=== PATIENT | male | born 1995 | race Caucasian/White ===

== ENCOUNTER 2023-03-23 04:45 | Emergency (ER) | payer BC ==
[2023-03-23] MEDS ORDERED: Ondansetron PF 4 MG/2 ML Vial ONE (05:07)
[2023-03-23 05:28] LABS: #Eosinphils 0.5 thou/uL (0.0-0.7); #Monocytes 0.6 thou/uL (0.11-0.59); #Neutrophils 2.9 thou/uL (1.40-6.50); %Basophils 0.5 % (0.0-1.0); %Eosinophils 5.5 % (0.0-10.0); %Lymphocytes 51.3 % (21.0-51.0); %Monocytes 7.6 % (0.0-10.0); Hematocrit 42.7 % (42.0-52.0); Hemoglobin 15.1 g/dL (14.0-18.0); Mean Corpuscular HGB CONC 35.4 g/dL (32.0-36.0); Mean Corpuscular Hemoglobin 31.1 pg (27.0-31.0); Mean Corpuscular Volume 87.9 fl (78.0-98.0); Mean Platelet Volume 9.3 fL (7.4-10.4); Platelet Count 235 10x3/uL (130-400); RBC Distribution Width 13.4 % (11.5-14.5); Red Blood Cell (RBC) Count 4.86 mill/uL (4.70-6.10); White Blood Cell (WBC) Count 8.3 10x3/uL (4.8-10.8)
[2023-03-23 05:48] LABS: Prothrombin Time 13.9 sec (12.0-14.7)
[2023-03-23 05:49] LABS: PTT 24.6 sec (22.9-36.1)
[2023-03-23 05:50] LABS: ALT (SGPT) 21 U/L (8-55); AST (SGOT) 22 U/L (5-34); Albumin 4.3 g/dL (3.5-5.0); Alkaline Phosphatase 53 U/L (40-110); Anion Gap 14 mmol/L (10-20); BUN (Urea Nitrogen) 9 mg/dL (8.9-20.6); Bilirubin, Total 0.9 mg/dL (0.2-1.2); Calc. Creatinine Clearance 0 mL/min (70-130); Calcium 9.1 mg/dL (7.8-10.44); Carbon Dioxide 22 mmol/L (22-29); Chloride 104 mmol/L (98-107); Estimated GFR 123; Globulin 2.8 g/dL (2.4-3.5); Glucose 123 mg/dL (70-105); Magnesium 1.6 mg/dL (1.6-2.6); Potassium 3.2 mmol/L (3.5-5.1); Protein, Total 7.1 g/dL (6.0-8.3); Sodium 137 mmol/L (136-145)
[2023-03-23 06:22] LABS: Acetaminophen Less than 10 mcg/mL (10.0-30.0); Alcohol Less than 10.0 mg/dL (Less than 10); Salicylate Less than 8.0 mg/dL (15.0-30.0)
[2023-03-23] MEDS ORDERED: Potassium Chloride 20 MEQ TAB ONE (06:54)
[2023-03-23 07:29] LABS: Amphetamine Not Detected (NotDetected); Barbiturates Screen Not Detected (NotDetected); Benzodiazepine Screen Not Detected (NotDetected); Cocaine Metabolite Screen Not Detected (NotDetected); Methadone Not Detected (NotDetected); Methamphetamine Not Detected (NotDetected); Opiate Screen Not Detected (NotDetected); Oxycodone Screen Not Detected (NotDetected); Phencyclidine (PCP) Not Detected (NotDetected); THC/Cannabinoid Screen Not Detected (NotDetected); Tricyclic Screen Not Detected (NotDetected)
[2023-03-23 09:09] LABS: Lactic Acid 0.7 mmol/L (0.5-2.2)
== END 2023-03-23 10:44 | disposition home or self-care (01) ==
LOC: ERS 04:45
DX: T56.1X1A Toxic effect of mercury and its compounds, accidental (unintentional), initial encounter (principal); E87.6 Hypokalemia; F17.210 Nicotine dependence, cigarettes, uncomplicated
CPT/HCPCS: 36415; 71045; 74018; 80053; 80306; 80307; 83605; 83735; 83825; 85025; 85610; 85730; 86850; 86900; 86901; 93005; 94760; J2405

== ENCOUNTER 2023-10-17 20:40 | Inpatient (IN) | payer SELFPAY ==
[2023-10-17] MEDS ORDERED: Ondansetron PF 4 MG/2 ML Vial ONE (23:26)
[2023-10-17] MEDS ORDERED: Morphine 4 MG/ML VIAL ONE (23:26)
[2023-10-18 01:49] VITALS: BMI 21.9
[2023-10-18] MEDS: Sodium Chloride 0.9% 1,000 ML IV SCH (02:13)
[2023-10-18] MEDS ORDERED: Morphine 4 MG/ML VIAL SLOW IVP PRN (02:16)
[2023-10-18] MEDS ORDERED: Calcium Carbonate 500 MG ChewTAB PO PRN ×2 (02:16→14:36)
[2023-10-18] MEDS ORDERED: Ondansetron PF 4 MG/2 ML Vial IVP PRN ×2 (02:16→14:36)
[2023-10-18] MEDS ORDERED: Promethazine HCl 25 MG/ML VIAL IM PRN ×2 (02:16→14:11)
[2023-10-18] MEDS ORDERED: Mag-Al 1200 mg/1200 mg/30 ML UDCUP PO PRN (02:16)
[2023-10-18] MEDS ORDERED: hydrALAZINE 20 MG/ML VIAL SLOW IVP PRN (02:16)
[2023-10-18] MEDS ORDERED: HYDROcodone/Acetaminophen 7.5/325 mg Tablet PO PRN (02:19)
[2023-10-18] MEDS: Lactated Ringer's 1,000 ML IV SCH (02:46)
[2023-10-18] MEDS: Piperacillin/Tazobactam 3.375 GM in Sodium Chloride 0.9% 100 ML IVPB SCH ×2 (02:54→02:55)
[2023-10-18 05:26] LABS: #Basophils 0.03 10x3/uL (0.0-0.2); %Basophils 0.3 % (0.0-1.0); %Eosinophils 0.5 % (0.0-10.0); %Lymphocytes 26.5 % (21.0-51.0); %Monocytes 14.6 % (0.0-10.0); %Neutrophils 57.8 % (42.0-75.0); Hematocrit 39.2 % (42.0-52.0); Hemoglobin 13.5 g/dL (14.0-18.0); Mean Corpuscular HGB CONC 34.4 g/dL (32.0-36.0); Mean Corpuscular Volume 89.9 fL (78.0-98.0); Mean Platelet Volume 9.1 fL (7.4-10.4); Platelet Count 226 10x3/uL (130-400); RBC Distribution Width 13.1 % (11.5-14.5); Red Blood Cell (RBC) Count 4.36 mill/uL (4.70-6.10)
[2023-10-18 05:52] LABS: ALT (SGPT) 15 U/L (8-55); AST (SGOT) 24 U/L (5-34); Albumin 3.3 g/dL (3.5-5.0); Alkaline Phosphatase 45 U/L (40-110); Anion Gap 13 mmol/L (10-20); BUN (Urea Nitrogen) 7 mg/dL (8.9-20.6); Bilirubin, Total 0.6 mg/dL (0.2-1.2); Calc. Creatinine Clearance 155 mL/min (70-130); Calcium 8.8 mg/dL (7.8-10.44); Carbon Dioxide 25 mmol/L (22-29); Chloride 104 mmol/L (98-107); Estimated GFR 123; Globulin 2.4 g/dL (2.4-3.5); Glucose 105 mg/dL (70-105); Potassium 3.4 mmol/L (3.5-5.1); Protein, Total 5.7 g/dL (6.0-8.3); Sodium 139 mmol/L (136-145)
[2023-10-18] MEDS ORDERED: Piperacillin/Tazobactam 3.375 GM in Sodium Chloride 0.9% 100 ML IVPB SCH (06:00)
[2023-10-18] MEDS: Famotidine 20 MG TAB PO SCH ×2 (09:05→20:11)
[2023-10-18] MEDS: Acetaminophen 325 MG TAB PO PRN (09:09)
[2023-10-18] MEDS ORDERED: Bupivacaine 0.25% HCL 30 ML VIAL ONE (09:30)
[2023-10-18] MEDS ORDERED: EPINEPHrine 1 MG/ML VIAL ONE (09:30)
[2023-10-18] MEDS: Indocyanine Green 25 MG/10 ML VIAL IVP SCH (11:57)
[2023-10-18] MEDS ORDERED: PROPOFOL 40 ML ONE (12:48)
[2023-10-18] MEDS ORDERED: Midazolam HCl 2 mg/2 ml Vial ONE (12:48)
[2023-10-18] MEDS ORDERED: Fentanyl 250 MCG/5 ML VIAL ONE (12:48)
[2023-10-18] MEDS ORDERED: Lidocaine 1% PF 5 ML VIAL ONE (13:22)
[2023-10-18] MEDS ORDERED: Dexamethasone 20 MG/5 ML VIAL ONE (13:22)
[2023-10-18] MEDS ORDERED: Rocuronium Bromide 10 MG/ML (10ML VIAL) ONE (13:22)
[2023-10-18] MEDS ORDERED: Dexmedetomidine 200 MCG/2 ML VIAL ONE (13:37)
[2023-10-18] MEDS ORDERED: SUGAMMADEX SODIUM 200 MG/2 ML VIAL ONE (13:55)
[2023-10-18] MEDS ORDERED: PROPOFOL 20 ML ONE (13:59)
[2023-10-18] MEDS ORDERED: HYDROmorphone 2 MG/ML VIAL SLOW IVP PRN (14:11)
[2023-10-18] MEDS ORDERED: Ondansetron HCl/PF 4 MG/2 ML Vial IVP PRN (14:11)
[2023-10-18] MEDS ORDERED: Ipratropium/Albuterol 3 ML NEB NEB PRN (14:36)
[2023-10-18] MEDS ORDERED: Glucagon 1 MG/ML KIT IM PRN (14:36)
[2023-10-18] MEDS ORDERED: Dextrose 50% Abboject 50 ML SYRINGE SLOW IVP PRN (14:36)
[2023-10-18] MEDS ORDERED: Dextrose 5% in Water 1,000 ML IV PRN (14:36)
[2023-10-18] MEDS ORDERED: fentaNYL 50 mcg/mL 1 mL Vial ONE ×2 (15:09→15:23)
[2023-10-18] MEDS: D5 1/2 NS w/20 mEq KCL 1,000 ML IV SCH (16:08)
[2023-10-18] MEDS: Ketorolac Tromethamine 30 MG (1 mL) VIAL IVP SCH (18:14)
[2023-10-18] MEDS: Docusate 100 MG CAP PO SCH (20:11)
[2023-10-18] MEDS: HYDROcodone/Acetaminophen 10/325 mg Tablet PO PRN (20:12)
[2023-10-19] MEDS: Enoxaparin 40 MG (0.4 mL) SYRINGE SC SCH (08:22)
[2023-10-19 11:56] VITALS: BP 108/69; TEMP 98.3
== END 2023-10-19 12:07 | disposition home or self-care (01) | DRG 419 ==
LOC: ERS 20:40 → T4-B 23:14
PROVIDERS: ADMIT Surgery; ATTEND Surgery
PROC: 0FT44ZZ Resection of Gallbladder, Percutaneous Endoscopic Approach (ICD-10-PCS; principal; 2023-10-18)
PROC: BF131ZZ Fluoroscopy of Gallbladder and Bile Ducts using Low Osmolar Contrast (ICD-10-PCS; 2023-10-18)
PROC: 8E0W4CZ Robotic Assisted Procedure of Trunk Region, Percutaneous Endoscopic Approach (ICD-10-PCS; 2023-10-18)
PROC: 3E033XZ Introduction of Vasopressor into Peripheral Vein, Percutaneous Approach (ICD-10-PCS; 2023-10-18)
DX: K80.00 Calculus of gallbladder with acute cholecystitis without obstruction (principal); F17.210 Nicotine dependence, cigarettes, uncomplicated; Z79.899 Other long term (current) drug therapy; Z98.890 Other specified postprocedural states
CPT/HCPCS: 36415; 76705; 80053; 85025; 88304; C1889; J0171; J0665; J1100; J1650; J1885; J2250; J2405; J2543; J2704; J3010; J3480; J7030; J7120